=== PATIENT | male | born 1945 | race American Indian/Alaskan Native ===

== ENCOUNTER 2021-02-12 01:25 | Emergency (ER) | payer MEDICARE ==
[2021-02-12] MEDS ORDERED: HYDROcodone/ACETAMINOPHEN 5-325 MG TAB PO ONE (02:02)
--- NOTE | 2021-02-12 02:12 | Emergency Department Report ---
HPI - General Chief Complaint: Extremity Problem,Nontraumatic Time Seen by Provider: 02/12/21 01:56 - [facility] HPI: Room 2 The patient is a 75-year-old male present with a chief complaint of right leg pain. 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 The patient has a history of dementia and states he is uncertain if he is on any anticoagulation. Patient was sent by the environmental protection inspector secondary to complaining of pain on the right leg. Patient states his right leg has hurt for the past 2 days. Patient currently gives his pain a score 5/10. Patient states otherwise "I feel okay." ED Past Medical Hx - Past Medical History Previous Medical History?: Yes Hx Deep Vein Thrombosis: Yes Hx Dementia: Yes - Surgical History Past Surgical History?: No - Family History Family history: no significant - Social History Smoking Status: Never Smoker Substance Use Type: None - Medications Home Medications: Home Medications Medication Instructions Recorded Confirmed Last Taken Type traMADoL [Ultram] 50 mg PO Q6HR PRN #14 tablet 02/12/21 Unknown Rx ED Review of Systems ROS: Stated complaint: RIGHT LEG PAIN Other details as noted in HPI Constitutional: no symptoms reported Eyes: denies: eye pain ENT: denies: throat pain Respiratory: no symptoms reported Cardiovascular: denies: chest pain Endocrine: no symptoms reported Gastrointestinal: denies: abdominal pain Genitourinary: denies: dysuria Musculoskeletal: denies: back pain Neurological: denies: headache Hematological/Lymphatic: other (Right lower extremity DVT) Physical Exam - Physical Exam Physical Exam: GENERAL: The patient is well-developed well-nourished male lying on stretcher not appearing to be in acute distress. [] HEENT: Normocephalic. Atraumatic. Extraocular motions are intact. Patient has moist mucous membranes. NECK: Supple. Trachea midline CHEST/LUNGS: Clear to auscultation. There is no respiratory distress noted. HEART/CARDIOVASCULAR: Regular. There is no tachycardia. There is no gallop rub or murmur. 2+ right DP ABDOMEN: Abdomen is soft, nontender. Patient has normal bowel sounds. There is no abdominal distention. SKIN: There is no rash. There is no edema. There is no diaphoresis. NEURO: The patient is awake, alert, and oriented. The patient is cooperative. The patient has no focal neurologic deficits. The patient has normal speech MUSCULOSKELETAL: There is tenderness of the right calf. There is no evidence of acute injury. ED Medical Decision Making - Lab Data Result diagrams: 02/12/21 02:17 02/12/21 02:17 Laboratory Tests 02/12/21 02/12/21 02/12/21 02:17 02:17 02:17 WBC 5.9 RBC 2.93 L Hgb 8.2 L Hct 24.7 L MCV 84 MCH 28 MCHC 33 RDW 17.7 H Plt Count 235 Lymph % (Auto) 20.8 [place] % (Auto) 8.4 H Eos % (Auto) 0.8 Baso % (Auto) 0.7 Lymph # (Auto) 1.2 [place] # (Auto) 0.5 Eos # (Auto) 0.0 Baso # (Auto) 0.0 Seg Neutrophils % 69.3 Seg Neutrophils # 4.1 PT 18.8 H INR 1.59 H APTT 43.9 H Sodium 139 Potassium 4.0 Chloride 104.3 Carbon Dioxide 24 Anion Gap 15 BUN 15 Creatinine 1.1 Estimated GFR > 60 BUN/Creatinine Ratio 14 Glucose 85 Calcium 8.3 L - Radiology Data Radiology results: report reviewed (Right lower extremity Doppler, right tib-fib x-ray), image reviewed (Right lower extremity Doppler, right tib-fib x-ray) interpreted by me: Right tib-fib x-ray-no acute fracture [facility] [address] [place] [address] Vascular Lab Report Signed Patient: JAYCEE BILL MR#: [id number] : 1945 Acct:[id number] Age/Sex: 75 / M ADM Date: 02/12/21 Loc: ED Attending Dr: Ordering Physician: VIANNEY PERES MD Date of Service: 02/12/21 Procedure(s): VL venous duplex LE RT Accession Number(s): [id number] cc: VIANNEY PERES MD DUPLEX DOPPLER LOWER EXTREMITY VEINS, RIGHT INDICATION / CLINICAL INFORMATION: Right l eg pain. TECHNIQUE: Duplex doppler imaging was performed through the veins of the right lower extremity using venous compression and other maneuvers. COMPARISON: None available. FINDINGS: RIGHT COMMON FEMORAL VEIN: Negative. RIGHT FEMORAL VEIN: Negative. RIGHT POPLITEAL VEIN: Negative. RIGHT CALF VEINS: Negative. ADDITIONAL FINDINGS: There is no evidence of a popliteal cyst or other significant abnormality. IMPRESSION: No sonographic evidence for DVT in the right lower extremity. Signer Name: Oracio Ellison MD Signed: 02/12/2021 2:58 AM Workstation Name: [id number] Transcribed By: RT Dictated By: Oracio Ellison MD Electronically Authenticated By: Oracio Ellison MD Signed Date/Time: 01/20 DD/ 6 TD/TT: [facility] [address] [place] [address] XRay Report Signed Patient: JAYCEE BILL MR#: [id number] : 1945 Acct:[id number] Age/Sex: 75 / M ADM Date: 02/12/21 Loc: ED Attending Dr: Jazz ricketts Physician: VIANNEY PERES MD Date of Service: 02/12/21 Procedure(s): XR tibia fibula 2V RT Accession Number(s): [id number] cc: VIANNEY PERES MD Fluoro Time In Minutes: RIGHT LOWER LEG 2 VIEWS INDICATION / CLINICAL INFORMATION: Right lower leg pain.. COMPARISON: None available. FINDINGS: BONES / JOINT(S): There are mild changes involving the knee. There is no evidence of fracture, subluxation or destructive lesion. SOFT TISSUES: There are mild atherosclerotic calcifications. ADDITIONAL FINDINGS: None. Signer Name: Oracio Ellison MD Signed: 02/12/2021 4:26 AM Workstation Name: [id number] Transcribed By: RT Dictated By: Oracio Ellison MD Electronically Authenticated By: Oracio Ellison MD S igned Date/Time: 02/12/21425 DD/ 4 TD/TT: Print Cancel - Differential Diagnosis DVT Critical care attestation.: If time is entered above; I have spent that time in minutes in the direct care of this critically ill patient, excluding procedure time. ED Disposition Clinical Impression: Right leg pain Disposition: DC-01 TO HOME OR SELFCARE Is pt being admited?: No Does the pt Need Aspirin: No Condition: Stable Additional Instructions: Return to the emergency department should you develop worsening symptoms, inability to tolerate food or liquids, high fever or any other concerns Prescriptions: traMADoL [Ultram] 50 mg PO Q6HR PRN #14 tablet PRN Reason: Pain Time of Disposition: 04:34
--- NOTE | 2021-02-12 03:03 | Vascular Lab Report ---
DUPLEX DOPPLER LOWER EXTREMITY VEINS, RIGHT INDICATION / CLINICAL INFORMATION: Right leg pain. TECHNIQUE: Duplex doppler imaging was performed through the veins of the right lower extremity using venous comp ression and other maneuvers. COMPARISON: None available. FINDINGS: RIGHT COMMON FEMORAL VEIN: Negative. RIGHT FEMORAL VEIN: Negative. RIGHT POPLITEAL VEIN: Negative. RIGHT CALF VEINS: Negative. ADDITIONAL FINDINGS: There is no evidence of a popliteal cyst or other significant abnormality. IMPRESSION: No sonographic evidence for DVT in the right lower extremity. Signer Name: Oracio Ellison MD Signed: 02/12/2021 2:58 AM Workstation Name: [id number]
[2021-02-12 03:18] LABS: Basophils % (Auto) 0.7 % (0.0-1.8); Eosinophils % (Auto) 0.8 % (0.0-4.3); Hematocrit 24.7 % (35.5-45.6); Hemoglobin 8.2 gm/dl (11.8-15.2); Lymphocytes # (Auto) 1.2 K/mm3 (1.2-5.4); Lymphocytes % (Auto) 20.8 % (13.4-35.0); Mean Corpuscular HGB Conc 33 % (32-34); Mean Corpuscular Volume 84 fl (84-94); Monocytes # (Auto) 0.5 K/mm3 (0.0-0.8); Monocytes % (Auto) 8.4 % (0.0-7.3); Platelet Count 235 K/mm3 (140-440); Red Blood Count 2.93 M/mm3 (3.65-5.03); Red Cell Distribution Width 17.7 % (13.2-15.2)
[2021-02-12 03:20] LABS: BUN/Creatinine Ratio 14; Blood Urea Nitrogen 15 mg/dL (9-20); Calcium 8.3 mg/dL (8.4-10.2); Hemolysis Index 0
[2021-02-12 03:27] LABS: INR 1.59 (0.87-1.13)
[2021-02-12 03:28] LABS: Partial Thromboplastin Time 43.9 Sec. (24.2-36.6)
--- NOTE | 2021-02-12 04:30 | XRay Report ---
RIGHT LOWER LEG 2 VIEWS INDICATION / CLINICAL INFORMATION: Right lower leg pain.. COMPARISON: None available. FINDINGS: BONES / JOINT(S): There are mild changes involving the knee. There is no evidence of fracture, sublux ation or destructive lesion. SOFT TISSUES: There are mild atherosclerotic calcifications. ADDITIONAL FINDINGS: None. Signer Name: Oracio Ellison MD Signed: 02/12/2021 4:26 AM Workstation Name: [id number]
[2021-02-12 06:22] VITALS: BP 131/78
== END 2021-02-12 10:40 | disposition home or self-care (01) ==
LOC: ED 01:25
DX: M79.604 Pain in right leg (principal); F03.90 Unspecified dementia, unspecified severity, without behavioral disturbance, psychotic disturbance, mood disturbance, and anxiety; Z79.899 Other long term (current) drug therapy
CPT/HCPCS: 36415; 80048; 85025; 85610; 85730